=== PATIENT | male | born 1960 | race Caucasian/White ===

== ENCOUNTER 2020-08-09 08:40 | Outpatient (CLI) | payer BC, OTHER | END 2020-08-09 08:41 | disposition home or self-care (01) | LOC: BICULT 08:40 | PROVIDERS: ATTEND Family Medicine | DX: M79.89 Other specified soft tissue disorders (principal) ==

== ENCOUNTER 2020-08-09 09:07 | Outpatient (CLI) | payer OTHER ==
[2020-08-09] MEDS ORDERED: Iopamidol 370 76% 100 ML VIAL ONE (15:10)
== END 2020-08-09 09:08 | disposition home or self-care (01) ==
LOC: CT 09:07
PROVIDERS: ATTEND Family Medicine
DX: R07.9 Chest pain, unspecified (principal); R79.89 Other specified abnormal findings of blood chemistry; K76.0 Fatty (change of) liver, not elsewhere classified
CPT/HCPCS: 71275; Q9967

== ENCOUNTER 2021-12-10 13:03 | Outpatient (CLI) | payer BC | END 2021-12-10 13:04 | disposition home or self-care (01) | LOC: MRI 13:03 | PROVIDERS: ATTEND Nurse Practitioner Family | DX: R55 Syncope and collapse (principal); R00.0 Tachycardia, unspecified; R10.32 Left lower quadrant pain; E11.65 Type 2 diabetes mellitus with hyperglycemia | CPT/HCPCS: 70551; 76999 ==

== ENCOUNTER 2024-05-25 20:53 | Inpatient (IN) | payer BC ==
[2024-05-25 21:17] LABS: #Basophils 0.04 10x3/uL (0.0-0.2); #Eosinophils Less than 0.03 10x3/uL (0.0-0.7); %Basophils 0.6 % (0.0-1.0); %Lymphocytes 5.8 % (21.0-51.0); %Monocytes 6.6 % (0.0-10.0); %Neutrophils 86.7 % (42.0-75.0); Hematocrit 32.1 % (42.0-52.0); Hemoglobin 10.7 g/dL (14.0-18.0); Mean Corpuscular HGB CONC 33.3 g/dL (32.0-36.0); Mean Corpuscular Volume 80.9 fL (78.0-98.0); Mean Platelet Volume 9.8 fL (7.4-10.4); Platelet Count 100 10x3/uL (130-400); RBC Distribution Width 18.5 % (11.5-14.5); Red Blood Cell (RBC) Count 3.97 mill/uL (4.70-6.10)
[2024-05-25] MEDS ORDERED: Diazepam 10 MG/2 ML SYRINGE ONE ×2 (21:24→22:14)
[2024-05-25 21:26] LABS: Lipase 68 U/L (8-78)
[2024-05-25 21:29] LABS: Acetaminophen Less than 10 mcg/mL (Less than 10); Salicylate Less than 8.0 mg/dL (Less than 8.0)
[2024-05-25 21:30] LABS: ALT (SGPT) 29 U/L (Less than 45); AST (SGOT) 81 U/L (11-34); Alkaline Phosphatase 67 U/L (40-110); Anion Gap 19 mmol/L (10-20); BUN (Urea Nitrogen) 12 mg/dL (8.4-25.7); Bilirubin, Total 1.1 mg/dL (0.3-1.2); Calc. Creatinine Clearance 0 mL/min (70-130); Calcium 9.2 mg/dL (7.8-10.44); Carbon Dioxide 21 mmol/L (23-31); Chloride 100 mmol/L (98-107); Estimated GFR 104; Globulin 4.6 g/dL (2.4-3.5); Glucose 176 mg/dL (80-115); Potassium 3.9 mmol/L (3.5-5.1); Protein, Total 8.6 g/dL (5.8-8.1); Sodium 136 mmol/L (136-145)
[2024-05-25 21:44] LABS: Anisocytosis MODERATE=16-30 cells HPF (0-5); Hypochromia SLIGHT = 6-15 cells HPF (0-5); Ovalocytes SLIGHT = 2-5 cells HPF (0-1); Platelet Adequacy Comment Platelets Decreased; Polychromasia SLIGHT = 2-3 cells HPF (0-2); Target Cells SLIGHT = 2-5 cells HPF (0-1)
[2024-05-25] MEDS ORDERED: Lorazepam 1 MG TAB PO PRN (22:48)
[2024-05-25] MEDS ORDERED: Lorazepam 2 MG/ML VIAL IM PRN (22:48)
[2024-05-25] MEDS ORDERED: Acetaminophen 325 MG TAB PO PRN (22:48)
[2024-05-25] MEDS ORDERED: traMADol HCl 50 MG TAB PO PRN (22:48)
[2024-05-25] MEDS ORDERED: Ondansetron ODT 4 MG TAB PO PRN ×2 (22:48)
[2024-05-25] MEDS ORDERED: Ondansetron PF 4 MG/2 ML Vial IVP PRN (22:48)
[2024-05-25] MEDS ORDERED: Electrolyte Replacement Protocol 1 EACH FS SCH (23:00)
[2024-05-25] MEDS ORDERED: Electrolyte Replacement Protocol FS PRN (23:00)
[2024-05-26 00:16] VITALS: BMI 29.3
[2024-05-26] MEDS: Lorazepam 1 MG TAB PO SCH (01:14)
[2024-05-26] MEDS: Pantoprazole 40 MG VIAL IVP SCH ×2 (01:15→09:26)
[2024-05-26] MEDS: Nicotine 7 MG PATCH TD SCH (01:16)
[2024-05-26] MEDS: Thiamine HCl 200 MG/2 ML VIAL SLOW IVP SCH (01:23)
[2024-05-26 02:01] LABS: #Basophils 0.03 10x3/uL (0.0-0.2); #Eosinophils Less than 0.03 10x3/uL (0.0-0.7); %Basophils 0.5 % (0.0-1.0); %Lymphocytes 7.7 % (21.0-51.0); %Monocytes 9.3 % (0.0-10.0); %Neutrophils 82.3 % (42.0-75.0); Hematocrit 28.2 % (42.0-52.0); Hemoglobin 9.5 g/dL (14.0-18.0); Mean Corpuscular HGB CONC 33.7 g/dL (32.0-36.0); Mean Corpuscular Hemoglobin 27.3 pg (27.0-31.0); Mean Platelet Volume 10.7 fL (7.4-10.4); Platelet Count 92 10x3/uL (130-400); RBC Distribution Width 18.5 % (11.5-14.5); Red Blood Cell (RBC) Count 3.48 mill/uL (4.70-6.10)
[2024-05-26 02:10] LABS: INR-International Normal Ratio 1.3; Prothrombin Time 15.7 sec (12.0-14.7)
[2024-05-26 02:11] LABS: PTT 32.7 sec (22.9-36.1)
[2024-05-26 02:14] LABS: Phosphorus 2.6 mg/dL (2.5-4.5)
[2024-05-26 02:16] LABS: ALT (SGPT) 26 U/L (Less than 45); AST (SGOT) 68 U/L (11-34); Albumin 3.6 g/dL (3.1-4.5); Alkaline Phosphatase 60 U/L (40-110); Anion Gap 16 mmol/L (10-20); BUN (Urea Nitrogen) 14 mg/dL (8.4-25.7); Bilirubin, Direct 0.5 mg/dL (0.1-0.3); Bilirubin, Total 1.2 mg/dL (0.3-1.2); Calc. Creatinine Clearance 175 mL/min (70-130); Calcium 8.8 mg/dL (7.8-10.44); Carbon Dioxide 24 mmol/L (23-31); Chloride 100 mmol/L (98-107); Estimated GFR 106; Globulin 4.1 g/dL (2.4-3.5); Glucose 144 mg/dL (80-115); Magnesium 1.5 mg/dL (1.6-2.6); Potassium 3.7 mmol/L (3.5-5.1); Protein, Total 7.7 g/dL (5.8-8.1); Sodium 136 mmol/L (136-145)
[2024-05-26 05:00] LABS: ALT (SGPT) 25 U/L (Less than 45); AST (SGOT) 66 U/L (11-34); Albumin 3.5 g/dL (3.1-4.5); Alkaline Phosphatase 59 U/L (40-110); Anion Gap 17 mmol/L (10-20); BUN (Urea Nitrogen) 14 mg/dL (8.4-25.7); Bilirubin, Total 1.4 mg/dL (0.3-1.2); Calc. Creatinine Clearance 165 mL/min (70-130); Calcium 8.6 mg/dL (7.8-10.44); Carbon Dioxide 24 mmol/L (23-31); Cardiac Risk 2.1 (Less than 4.5); Chloride 100 mmol/L (98-107); Cholesterol 169 mg/dl (< 200 Desired); Estimated GFR 104; Globulin 3.9 g/dL (2.4-3.5); Glucose 126 mg/dL (80-115); HDL Cholesterol 81 mg/dL (>60 Neg Risk); LDL Cholesterol, Calculated 79 mg/dL; Potassium 3.5 mmol/L (3.5-5.1); Protein, Total 7.4 g/dL (5.8-8.1); Sodium 137 mmol/L (136-145); Triglycerides 43 mg/dL (Less than 150)
[2024-05-26 05:00] LABS: Amphetamine Not Detected (NotDetected); Barbiturates Screen Not Detected (NotDetected); Benzodiazepine Screen Detected (NotDetected); Cocaine Metabolite Screen Not Detected (NotDetected); Methadone Not Detected (NotDetected); Methamphetamine Not Detected (NotDetected); Opiate Screen Not Detected (NotDetected); Oxycodone Screen Not Detected (NotDetected); Phencyclidine (PCP) Not Detected (NotDetected); THC/Cannabinoid Screen Not Detected (NotDetected); Tricyclic Screen Not Detected (NotDetected)
[2024-05-26 05:15] LABS: #Basophils 0.04 10x3/uL (0.0-0.2); #Eosinophils Less than 0.03 10x3/uL (0.0-0.7); %Basophils 0.6 % (0.0-1.0); %Monocytes 12.9 % (0.0-10.0); %Neutrophils 74.2 % (42.0-75.0); Hematocrit 27.9 % (42.0-52.0); Hemoglobin 9.6 g/dL (14.0-18.0); Mean Corpuscular HGB CONC 34.4 g/dL (32.0-36.0); Mean Corpuscular Hemoglobin 27.7 pg (27.0-31.0); Mean Corpuscular Volume 80.6 fL (78.0-98.0); Mean Platelet Volume 9.3 fL (7.4-10.4); Platelet Count 90 10x3/uL (130-400); RBC Distribution Width 18.6 % (11.5-14.5); Red Blood Cell (RBC) Count 3.46 mill/uL (4.70-6.10)
[2024-05-26] MEDS: Lorazepam 2 MG/ML VIAL SLOW IVP PRN (08:29)
[2024-05-26] MEDS ORDERED: chlordiazePOXIDE HCl 5 MG CAP PO SCH (09:00)
[2024-05-26] MEDS: Potassium Chloride 20 MEQ TAB PO SCH (09:26)
[2024-05-26] MEDS: Aspirin 81 mg Enteric Coated Tablet PO SCH (09:26)
[2024-05-26] MEDS: Magnesium 2 GM/50 ML(in water) 2 GM in Premix 1 BAG IVPB SCH (09:26)
[2024-05-26] MEDS: Multivit, Therapeutic 1 TAB PO SCH (09:26)
[2024-05-26] MEDS: Folic Acid 1 MG TAB PO SCH (09:26)
[2024-05-26] MEDS: Enoxaparin 40 MG (0.4 mL) SYRINGE SC SCH (09:26)
[2024-05-26] MEDS: chlordiazePOXIDE HCl 25 MG CAP PO SCH (12:16)
[2024-05-26] MEDS ORDERED: Iopamidol 370 76% 100 ML VIAL ONE (14:46)
[2024-05-26] MEDS: FLU (Fluarix Triv) TS24-25(6MOS UP)/PF 45 MCG/0.5 ML Syringe IM ONE (15:36)
[2024-05-26] MEDS: Atorvastatin Calcium 40 MG TAB PO SCH (21:44)
[2024-05-26] MEDS ORDERED: Lorazepam 1 MG TAB PO PRN (22:48)
[2024-05-27] MEDS: Nicotine 21 MG PATCH TD SCH (09:45)
[2024-05-27 09:50] LABS: Iron 50 ug/dL (65-175); Iron Binding Capacity, Total 424 mcg/dL (261-462); Magnesium 1.7 mg/dL (1.6-2.6)
[2024-05-27] MEDS: Magnesium 2 GM/50 ML(in water) 2 GM in Premix 1 BAG IVPB SCH (11:35)
[2024-05-27] MEDS: Lorazepam 0.5 MG TAB PO SCH (22:32)
[2024-05-27] MEDS ORDERED: Lorazepam 1 MG TAB PO PRN (22:48)
[2024-05-28 08:07] LABS: #Basophils 0.03 10x3/uL (0.0-0.2); %Basophils 0.6 % (0.0-1.0); %Eosinophils 1.8 % (0.0-10.0); %Lymphocytes 17.6 % (21.0-51.0); %Monocytes 11.2 % (0.0-10.0); %Neutrophils 68.6 % (42.0-75.0); Hematocrit 29.2 % (42.0-52.0); Hemoglobin 9.8 g/dL (14.0-18.0); Mean Corpuscular HGB CONC 33.6 g/dL (32.0-36.0); Mean Corpuscular Hemoglobin 27.7 pg (27.0-31.0); Mean Corpuscular Volume 82.5 fL (78.0-98.0); Mean Platelet Volume 10.5 fL (7.4-10.4); Platelet Count 106 10x3/uL (130-400); RBC Distribution Width 18.6 % (11.5-14.5); Red Blood Cell (RBC) Count 3.54 mill/uL (4.70-6.10)
[2024-05-28 08:13] LABS: Phosphorus 4.9 mg/dL (2.5-4.5)
[2024-05-28 08:15] LABS: ALT (SGPT) 30 U/L (Less than 45); AST (SGOT) 78 U/L (11-34); Albumin 3.8 g/dL (3.1-4.5); Alkaline Phosphatase 72 U/L (40-110); Anion Gap 15 mmol/L (10-20); BUN (Urea Nitrogen) 13 mg/dL (8.4-25.7); Bilirubin, Total 1.5 mg/dL (0.3-1.2); Calc. Creatinine Clearance 136 mL/min (70-130); Calcium 9.5 mg/dL (7.8-10.44); Carbon Dioxide 23 mmol/L (23-31); Chloride 98 mmol/L (98-107); Estimated GFR 99; Globulin 4.1 g/dL (2.4-3.5); Glucose 124 mg/dL (80-115); Potassium 3.6 mmol/L (3.5-5.1); Protein, Total 7.9 g/dL (5.8-8.1); Sodium 132 mmol/L (136-145)
[2024-05-28] MEDS: Amlodipine 5 MG TAB PO SCH (09:39)
[2024-05-28] MEDS: Pantoprazole 40 MG DR.TAB PO SCH (09:40)
[2024-05-28] MEDS: Thiamine 100 MG TAB PO SCH (22:06)
[2024-05-28] MEDS: Lorazepam 0.5 MG TAB PO PRN (22:07)
[2024-05-29 06:51] LABS: #Basophils 0.05 10x3/uL (0.0-0.2); %Basophils 1.1 % (0.0-1.0); %Eosinophils 2.9 % (0.0-10.0); %Lymphocytes 22.3 % (21.0-51.0); %Monocytes 14.2 % (0.0-10.0); Hematocrit 28.1 % (42.0-52.0); Hemoglobin 9.5 g/dL (14.0-18.0); Mean Corpuscular HGB CONC 33.8 g/dL (32.0-36.0); Mean Corpuscular Hemoglobin 27.9 pg (27.0-31.0); Mean Corpuscular Volume 82.4 fL (78.0-98.0); Mean Platelet Volume 10.7 fL (7.4-10.4); Platelet Count 104 10x3/uL (130-400); RBC Distribution Width 18.8 % (11.5-14.5); Red Blood Cell (RBC) Count 3.41 mill/uL (4.70-6.10)
[2024-05-29 07:05] LABS: ALT (SGPT) 30 U/L (Less than 45); AST (SGOT) 59 U/L (11-34); Albumin 3.5 g/dL (3.1-4.5); Alkaline Phosphatase 67 U/L (40-110); Anion Gap 13 mmol/L (10-20); BUN (Urea Nitrogen) 14 mg/dL (8.4-25.7); Calc. Creatinine Clearance 150 mL/min (70-130); Calcium 9.2 mg/dL (7.8-10.44); Carbon Dioxide 23 mmol/L (23-31); Chloride 102 mmol/L (98-107); Estimated GFR 101; Globulin 3.9 g/dL (2.4-3.5); Glucose 114 mg/dL (80-115); Magnesium 1.6 mg/dL (1.6-2.6); Potassium 3.4 mmol/L (3.5-5.1); Protein, Total 7.4 g/dL (5.8-8.1); Sodium 135 mmol/L (136-145)
[2024-05-29] MEDS: Magnesium 2 GM/50 ML(in water) 2 GM in Premix 1 BAG IVPB SCH ×2 (08:37→10:53)
[2024-05-29] MEDS: Potassium Chloride 20 MEQ TAB PO SCH (08:37)
[2024-05-29] MEDS ORDERED: Potassium Chloride 20 MEQ TAB PO SCH (09:45)
[2024-05-29 16:43] VITALS: BP 129/78; TEMP 98.2
== END 2024-05-29 16:35 | disposition home or self-care (01) | DRG 896 ==
LOC: ERS 20:53 → 2NO 22:48 → OBSVTOIN 05-26 10:32 → T4-A 05-26 19:28
PROVIDERS: ADMIT Internal Medicine; ATTEND Hospitalist
PROC: HZ2ZZZZ Detoxification Services for Substance Abuse Treatment (ICD-10-PCS; principal; 2024-05-26)
DX: F10.139 Alcohol abuse with withdrawal, unspecified (principal); G92.8 Other toxic encephalopathy; R29.6 Repeated falls; D64.9 Anemia, unspecified; F41.9 Anxiety disorder, unspecified; D69.6 Thrombocytopenia, unspecified; E11.9 Type 2 diabetes mellitus without complications; F17.220 Nicotine dependence, chewing tobacco, uncomplicated; R56.9 Unspecified convulsions; K76.0 Fatty (change of) liver, not elsewhere classified; Z88.2 Allergy status to sulfonamides
CPT/HCPCS: 36415; 36416; 70450; 71045; 74178; 80053; 80061; 80306; 80307; 82248; 82607; 83540; 83550; 83690; 83735; 84100; 84145; 84425; 85025; 85046; 85610; 85730; 93005; 93306; 93880; 94760; 96361; 96372; 96374; 96375; 96376; G0378; J1650; J2060; J2470; J3360; J3411; J3475; Q9967